=== PATIENT | female | born 1955 | race Caucasian/White ===

== ENCOUNTER 2016-07-04 11:32 | Emergency (ER) | payer MEDICAID ==
[~2016-07-04] VITALS: Ht 152.4 cm; Wt 60.0 kg
[~2016-07-04 11:32] MED LIST: HYDR-3241 PO; LISI5TAB7 PO; TRAZ100T15 PO
[2016-07-04] MEDS ORDERED: ZIPRASIDONE 20 MG INJ IM ONE ×2 (11:36→12:00)
[2016-07-04] MEDS ORDERED: SODIUM CHLORIDE FLUSH 10ML SYR IVF ONE (18:30)
[2016-07-04] MEDS ORDERED: SODIUM CHLORIDE 0.9% 1,000ML IVBOLUS ONE (18:30)
[2016-07-04 21:39] VITALS: BP 160/94
== END 2016-07-04 21:41 | disposition home or self-care (01) ==
LOC: ED 15:57
DX: F10.220 Alcohol dependence with intoxication, uncomplicated (principal); R10.84 Generalized abdominal pain; G89.29 Other chronic pain; F17.200 Nicotine dependence, unspecified, uncomplicated; I10 Essential (primary) hypertension; J44.9 Chronic obstructive pulmonary disease, unspecified; Y90.9 Presence of alcohol in blood, level not specified
CPT/HCPCS: 71010; 96372; 99283; J3486

== ENCOUNTER 2016-08-04 09:40 | Emergency (ER) | payer MEDICAID ==
[~2016-08-04] VITALS: Ht 157.5 cm; Wt 52.0 kg
[~2016-08-04 09:40] MED LIST changes: +OMEP-110 PO
[2016-08-04] MEDS ORDERED: SODIUM CHLORIDE 0.9% 1,000 ML IV ONE (09:50)
[2016-08-04] MEDS ORDERED: FAMOTIDINE 20 MG/2 ML IVP ONE (10:00)
[2016-08-04] MEDS ORDERED: ONDANSETRON 2MG/ML, 2ML IVPush ONE (10:00)
[2016-08-04] MEDS ORDERED: SODIUM CHLORIDE 0.9% 1,000ML IVBOLUS ONE (10:00)
[2016-08-04 10:14] LABS: HEMOGLOBIN 14.7 g/dL (11.7-16.4)
[2016-08-04 10:20] LABS: ASPARTATE AMINO TRANSFERASE 22 U/L (15-37); BLOOD UREA NITROGEN 13 mg/dL (7-18)
[2016-08-04 10:34] LABS: DIFF TOTAL CELLS COUNTED 100 CELL DIFF
[2016-08-04 10:39] LABS: VERIFY COUNTS? YES
[2016-08-04] MEDS ORDERED: FAMOTIDINE 20 MG/2 ML ONE (10:39)
[2016-08-04] MEDS ORDERED: MORPHINE SULFATE 4 MG/ML, 1ML ONE ×2 (10:39→10:56)
[2016-08-04] MEDS ORDERED: ONDANSETRON 2MG/ML, 2ML ONE (10:39)
[2016-08-04 10:40] LABS: POLYCHROMASIA 1+
[2016-08-04] MEDS: MORPHINE SULFATE 4 MG/ML, 1ML IVPush PRN ×2 (10:47→10:59)
[2016-08-04] MEDS ORDERED: LORazepam 2 MG/ML, 1ML IVPush ONE (12:30)
[2016-08-04] MEDS ORDERED: LORazepam 2 MG/ML, 1ML ONE (12:43)
[2016-08-04 14:22] VITALS: BP 157/60
== END 2016-08-04 14:24 | disposition home or self-care (01) ==
LOC: ED 10:42
DX: R10.84 Generalized abdominal pain (principal); F10.239 Alcohol dependence with withdrawal, unspecified; J44.9 Chronic obstructive pulmonary disease, unspecified
CPT/HCPCS: 36415; 76700; 80053; 81003; 83690; 85025; 96361; 96374; 96375; 99285; J2060; J2405; J7030; S0028

== ENCOUNTER 2016-08-18 15:11 | Emergency (ER) | payer MEDICAID ==
[~2016-08-18] VITALS: Ht 162.6 cm; Wt 52.0 kg
[2016-08-18 16:49] LABS: PATH.CAST-FLAG NOT PRESENT; SPERM-FLAG NOT PRESENT; SRC-FLAG NOT PRESENT; XTAL-FLAG NOT PRESENT; YLC-FLAG NOT PRESENT
[2016-08-18 17:23] LABS: BLOOD UREA NITROGEN 17 mg/dL (7-18)
[2016-08-18 17:25] LABS: ASPARTATE AMINO TRANSFERASE 32 U/L (15-37)
[2016-08-18 17:51] VITALS: BP 148/87
== END 2016-08-18 19:25 | disposition home or self-care (01) ==
LOC: ED 19:18
DX: R41.0 Disorientation, unspecified (principal); F10.129 Alcohol abuse with intoxication, unspecified; Y90.9 Presence of alcohol in blood, level not specified
CPT/HCPCS: 36415; 80053; 81001; 82140; 83690; 85025; 87086; 99284

== ENCOUNTER 2016-08-18 23:35 | Emergency (ER) | payer MEDICAID ==
[~2016-08-18] VITALS: Ht 162.6 cm; Wt 50.0 kg
[2016-08-18 23:49] VITALS: BP 128/84
[2016-08-19] MEDS ORDERED: MAALOX/HYOSCYAMINE/LIDOCAINE 45 ML BOTTLE PO ONE
[2016-08-19] MEDS ORDERED: MAALOX/HYOSCYAMINE/LIDOCAINE 45 ML BOTTLE ONE
== END 2016-08-19 01:27 | disposition home or self-care (01) ==
LOC: ED 23:59
DX: F10.20 Alcohol dependence, uncomplicated (principal); Y90.9 Presence of alcohol in blood, level not specified
CPT/HCPCS: 99283

== ENCOUNTER 2016-08-19 22:10 | Emergency (ER) | payer MEDICAID ==
[~2016-08-19] VITALS: Ht 157.5 cm; Wt 55.0 kg
[2016-08-19 23:11] LABS: BLOOD UREA NITROGEN 13 mg/dL (7-18)
[2016-08-20 01:10] VITALS: BP 131/81
== END 2016-08-20 01:13 | disposition home or self-care (01) ==
LOC: ED 08-20 01:03
DX: K62.5 Hemorrhage of anus and rectum (principal); F10.20 Alcohol dependence, uncomplicated; I10 Essential (primary) hypertension; K29.70 Gastritis, unspecified, without bleeding
CPT/HCPCS: 36415; 80048; 85025; 99284

== ENCOUNTER 2016-08-20 13:17 | Emergency (ER) | payer MEDICAID ==
[~2016-08-20] VITALS: Ht 157.5 cm; Wt 55.0 kg
[2016-08-20 14:32] LABS: ASPARTATE AMINO TRANSFERASE 27 U/L (15-37); BLOOD UREA NITROGEN 13 mg/dL (7-18)
[2016-08-20 14:37] LABS: ACETAMINOPHEN < 2 mcg/mL (10-30)
[2016-08-20] MEDS ORDERED: ONDANSETRON ODT 8 MG PO ONE (20:30)
[2016-08-20] MEDS ORDERED: ONDANSETRON ODT 8 MG ONE (20:31)
[2016-08-20] MEDS ORDERED: ACETAMINOPHEN 325 MG TABLET ONE (21:50)
[2016-08-20] MEDS ORDERED: THIAMINE 100MG TABLET ONE (21:51)
[2016-08-20] MEDS ORDERED: ACETAMINOPHEN 325 MG TABLET PO ONE (22:00)
[2016-08-20] MEDS ORDERED: THIAMINE 100MG TABLET PO ONE (22:00)
[2016-08-20 22:10] VITALS: BP 148/81
== END 2016-08-20 22:12 | disposition home or self-care (01) ==
LOC: ED 13:54
DX: F10.120 Alcohol abuse with intoxication, uncomplicated (principal); J44.9 Chronic obstructive pulmonary disease, unspecified; I10 Essential (primary) hypertension; F10.20 Alcohol dependence, uncomplicated
CPT/HCPCS: 36415; 80053; 80307; 80329; 85025; 99284; Q0162; G0480

== ENCOUNTER 2016-08-23 00:57 | Emergency (ER) | payer MEDICAID ==
[~2016-08-23] VITALS: Ht 157.5 cm; Wt 59.1 kg
[2016-08-23 06:18] VITALS: BP 123/72
== END 2016-08-23 06:26 | disposition home or self-care (01) ==
LOC: ED 02:24
DX: F32.0 Major depressive disorder, single episode, mild (principal); F10.120 Alcohol abuse with intoxication, uncomplicated
CPT/HCPCS: 99284

== ENCOUNTER 2016-08-28 21:29 | Emergency (ER) | payer MEDICAID ==
[~2016-08-28] VITALS: Ht 167.6 cm; Wt 46.5 kg
[2016-08-28 21:55] VITALS: BP 112/56
[2016-08-28] MEDS ORDERED: FAMOTIDINE 20 MG/2 ML IVP ONE (22:00)
[2016-08-28] MEDS ORDERED: PLEASE ENTER HEIGHT AND WEIGHT MC SCH (22:00)
[2016-08-28] MEDS ORDERED: SODIUM CHLORIDE 0.9% 1,000ML IVBOLUS ONE (22:00)
[2016-08-28] MEDS ORDERED: ONDANSETRON 2MG/ML, 2ML IVPush ONE (22:00)
== END 2016-08-28 22:59 | disposition home or self-care (01) ==
LOC: ED 22:13
DX: R10.9 Unspecified abdominal pain (principal); R19.7 Diarrhea, unspecified
CPT/HCPCS: 99283

== ENCOUNTER 2016-08-29 09:05 | Emergency (ER) | payer MEDICAID ==
[~2016-08-29] VITALS: Ht 160 cm; Wt 50.0 kg
[2016-08-29] MEDS ORDERED: SODIUM CHLORIDE 0.9% 1,000 ML IV ONE (09:23)
[2016-08-29] MEDS ORDERED: FAMOTIDINE 20 MG/2 ML IVP ONE (09:30)
[2016-08-29] MEDS ORDERED: ONDANSETRON 2MG/ML, 2ML IVPush ONE (09:30)
[2016-08-29] MEDS ORDERED: MAALOX/HYOSCYAMINE/LIDOCAINE 45 ML BOTTLE PO ONE (09:30)
[2016-08-29] MEDS ORDERED: SODIUM CHLORIDE 0.9% 1,000ML IVBOLUS ONE (09:30)
[2016-08-29 09:52] LABS: BLOOD UREA NITROGEN 17 mg/dL (7-18)
[2016-08-29] MEDS ORDERED: PLEASE ENTER HEIGHT AND WEIGHT MC SCH (10:00)
[2016-08-29] MEDS ORDERED: MAALOX/HYOSCYAMINE/LIDOCAINE 45 ML BOTTLE ONE (10:24)
[2016-08-29] MEDS ORDERED: FAMOTIDINE 20 MG/2 ML ONE (10:24)
[2016-08-29] MEDS ORDERED: ONDANSETRON 2MG/ML, 2ML ONE (10:24)
[2016-08-29 11:06] VITALS: BP 130/79
[2016-08-29 11:06] LABS: ASPARTATE AMINO TRANSFERASE 21 U/L (15-37)
== END 2016-08-29 12:31 | disposition left against medical advice (07) ==
LOC: ED 09:15
DX: K52.9 Noninfective gastroenteritis and colitis, unspecified (principal); J44.9 Chronic obstructive pulmonary disease, unspecified; I10 Essential (primary) hypertension; F17.200 Nicotine dependence, unspecified, uncomplicated
CPT/HCPCS: 36415; 80053; 80307; 83690; 85025; 96361; 96374; 96375; 99284; J2405; J7030; S0028

== ENCOUNTER 2016-08-31 21:47 | Emergency (ER) | payer MEDICAID ==
[~2016-08-31] VITALS: Ht 157.5 cm; Wt 56.8 kg
[2016-08-31 21:50] VITALS: BP 155/94
== END 2016-08-31 22:49 | disposition left against medical advice (07) ==
LOC: ED 22:00
DX: F10.10 Alcohol abuse, uncomplicated (principal)

== ENCOUNTER 2016-11-24 12:09 | Emergency (ER) | payer MEDICAID ==
[~2016-11-24] VITALS: Ht 160 cm; Wt 55.0 kg
[2016-11-24] MEDS ORDERED: SODIUM CHLORIDE FLUSH 10ML SYR IVF ONE (13:00)
[2016-11-24] MEDS ORDERED: ONDANSETRON 2MG/ML, 2ML IVPush ONE (13:00)
[2016-11-24] MEDS ORDERED: SODIUM CHLORIDE 0.9% 1,000ML IVBOLUS ONE (13:00)
[2016-11-24] MEDS ORDERED: MORPHINE SULFATE 4 MG/ML, 1ML ONE ×2 (13:05→14:20)
[2016-11-24] MEDS ORDERED: ONDANSETRON 2MG/ML, 2ML ONE (13:05)
[2016-11-24] MEDS: MORPHINE SULFATE 4 MG/ML, 1ML IVPush PRN ×2 (13:20→14:21)
[2016-11-24 14:45] VITALS: BP 131/80
== END 2016-11-24 15:35 | disposition left against medical advice (07) ==
LOC: ED 14:41
DX: S60.811A Abrasion of right wrist, initial encounter (principal); G89.11 Acute pain due to trauma; F17.200 Nicotine dependence, unspecified, uncomplicated; I10 Essential (primary) hypertension; J44.9 Chronic obstructive pulmonary disease, unspecified; W19.XXXA Unspecified fall, initial encounter; Y93.89 Activity, other specified; Y92.89 Other specified places as the place of occurrence of the external cause; Y99.8 Other external cause status
CPT/HCPCS: 73110; 93005; 96361; 96374; 96375; 96376; 99285; J2405; J7030

== ENCOUNTER 2016-12-07 22:56 | Emergency (ER) | payer MEDICAID | END 2016-12-07 23:40 | disposition home or self-care (01) | LOC: ED 23:34 | DX: M79.631 Pain in right forearm (principal); R10.84 Generalized abdominal pain; F10.20 Alcohol dependence, uncomplicated; J44.9 Chronic obstructive pulmonary disease, unspecified; F19.10 Other psychoactive substance abuse, uncomplicated; W19.XXXA Unspecified fall, initial encounter; Y93.89 Activity, other specified; Y99.8 Other external cause status; Y92.89 Other specified places as the place of occurrence of the external cause | CPT/HCPCS: 99283 ==

== ENCOUNTER 2016-12-11 02:06 | Emergency (ER) | payer MEDICAID ==
[~2016-12-11] VITALS: Ht 154.9 cm; Wt 45.0 kg
[2016-12-11] MEDS ORDERED: THIAMINE 100MG TABLET ONE (02:26)
[2016-12-11] MEDS ORDERED: PROMETHAZINE 25 MG/ML, 1ML ONE (02:26)
[2016-12-11] MEDS ORDERED: LORazepam 1MG TABLET ONE (02:26)
[2016-12-11] MEDS ORDERED: PROMETHAZINE 25 MG/ML, 1ML IM ONE (02:30)
[2016-12-11] MEDS ORDERED: THIAMINE 100MG TABLET PO ONE (02:30)
[2016-12-11] MEDS ORDERED: LORazepam 1MG TABLET PO ONE (02:30)
[2016-12-11 02:35] LABS: HEMATOCRIT 40.3 % (34.6-47.8); HEMOGLOBIN 13.3 g/dL (11.7-16.4); WHITE BLOOD COUNT 7.2 x10^3/uL (3.4-10)
[2016-12-11 02:44] LABS: BLOOD UREA NITROGEN 13 mg/dL (7-18)
[2016-12-11 03:59] VITALS: BP 130/78
== END 2016-12-11 04:02 | disposition home or self-care (01) ==
LOC: ED 03:30
DX: F10.220 Alcohol dependence with intoxication, uncomplicated (principal); I10 Essential (primary) hypertension; J44.9 Chronic obstructive pulmonary disease, unspecified
CPT/HCPCS: 36415; 80048; 80307; 82040; 85025; 93005; 96372; 99285; J2550

== ENCOUNTER 2016-12-20 07:40 | Emergency (ER) | payer MEDICAID ==
[~2016-12-20] VITALS: Ht 157.5 cm; Wt 68.0 kg
[2016-12-20 08:18] VITALS: BP 118/61
== END 2016-12-20 13:30 | disposition home or self-care (01) ==
LOC: ED 07:51
DX: F10.220 Alcohol dependence with intoxication, uncomplicated (principal); M25.531 Pain in right wrist; I10 Essential (primary) hypertension; J44.9 Chronic obstructive pulmonary disease, unspecified
CPT/HCPCS: 99283

== ENCOUNTER 2016-12-29 16:22 | Emergency (ER) | payer MEDICAID ==
[~2016-12-29] VITALS: Ht 157.5 cm; Wt 59.6 kg
[2016-12-29 17:20] LABS: HEMATOCRIT 38.5 % (34.6-47.8); WHITE BLOOD COUNT 4.5 x10^3/uL (3.4-10)
[2016-12-29 17:30] LABS: BLOOD UREA NITROGEN 15 mg/dL (7-18)
[2016-12-29] MEDS ORDERED: POTASSIUM CHLORIDE 20 MEQ TAB.ER.PRT PO ONE (19:30)
[2016-12-29] MEDS ORDERED: POTASSIUM CHLORIDE 20 MEQ TAB.ER.PRT ONE (19:32)
[2016-12-29] MEDS ORDERED: ONDANSETRON ODT 4 MG ONE (19:35)
[2016-12-29] MEDS ORDERED: ONDANSETRON ODT 4 MG PO ONE (20:00)
[2016-12-29 20:24] VITALS: BP 114/62
[2016-12-29 20:43] LABS: ASPARTATE AMINO TRANSFERASE 34 U/L (15-37)
== END 2016-12-29 22:36 | disposition home or self-care (01) ==
LOC: ED 20:39
DX: M54.5 Low back pain (principal); E87.6 Hypokalemia; G89.29 Other chronic pain; M54.2 Cervicalgia; J44.9 Chronic obstructive pulmonary disease, unspecified; I10 Essential (primary) hypertension; F10.20 Alcohol dependence, uncomplicated; F32.9 Major depressive disorder, single episode, unspecified
CPT/HCPCS: 36415; 72110; 80053; 81001; 83690; 84439; 84443; 85025; 87086; 93005; 99285; Q0162

== ENCOUNTER 2017-01-30 18:50 | Emergency (ER) | payer MEDICAID ==
[~2017-01-30] VITALS: Ht 160 cm; Wt 55.0 kg
[2017-01-30 19:00] VITALS: BP 138/87
[2017-01-30] MEDS ORDERED: ONDANSETRON ODT 4 MG PO ONE (19:30)
[2017-01-30] MEDS ORDERED: MAALOX/HYOSCYAMINE/LIDOCAINE 45 ML BTL PO ONE (19:30)
== END 2017-01-30 20:06 | disposition left against medical advice (07) ==
LOC: ED 19:35
DX: R10.13 Epigastric pain (principal); F32.9 Major depressive disorder, single episode, unspecified; J44.9 Chronic obstructive pulmonary disease, unspecified
CPT/HCPCS: 99283

== ENCOUNTER 2017-01-31 02:04 | Observation (INO) | payer MEDICAID ==
[~2017-01-31] VITALS: Ht 162.6 cm; Wt 55.0 kg
[2017-01-31 02:54] LABS: HEMATOCRIT 47.1 % (34.6-47.8); HEMOGLOBIN 16.1 g/dL (11.7-16.4)
[2017-01-31 03:01] LABS: BLOOD UREA NITROGEN 16 mg/dL (7-18)
[2017-01-31 03:02] LABS: ACETAMINOPHEN < 2 mcg/mL (10-30)
[2017-01-31 03:13] LABS: DIFF TOTAL CELLS COUNTED 100 CELL DIFF
[2017-01-31 03:16] LABS: VERIFY COUNTS? YES
[2017-01-31] MEDS ORDERED: ONDANSETRON ODT 4 MG ONE ×2 (08:42→19:14)
[2017-01-31] MEDS ORDERED: ONDANSETRON ODT 4 MG PO ONE (09:00)
[2017-01-31] MEDS ORDERED: LORazepam 2 MG/ML, 1ML IVPush PRN (11:30)
[2017-01-31] MEDS ORDERED: PROMETHAZINE 25 MG/ML, 1ML ONE (11:40)
[2017-01-31] MEDS ORDERED: LORazepam 1MG TABLET ONE ×2 (11:41→19:14)
[2017-01-31] MEDS ORDERED: PROMETHAZINE 25 MG/ML, 1ML IM ONE (12:00)
[2017-01-31] MEDS ORDERED: LORazepam 1MG TABLET PO ONE (12:00)
[2017-01-31] MEDS ORDERED: NICOTINE 14MG/24 HR PATCH.TD24 TD SCH (18:30)
[2017-01-31] MEDS ORDERED: LISINOPRIL 5 MG TABLET PO ONE (18:30)
[2017-01-31] MEDS: ONDANSETRON ODT 4 MG PO PRN (19:15)
[2017-01-31 19:23] LABS: DAU SCREEN DISCLAIMER
[2017-01-31] MEDS ORDERED: TRAZODONE 100MG TABLET PO SCH (21:00)
[2017-02-01] MEDS ORDERED: NICOTINE 14MG/24 HR PATCH.TD24 ONE (03:58)
[2017-02-01] MEDS ORDERED: ONDANSETRON ODT 4 MG ONE ×2 (03:58→18:38)
[2017-02-01] MEDS ORDERED: LORazepam 1MG TABLET ONE ×3 (03:59→18:38)
[2017-02-01] MEDS: ONDANSETRON ODT 4 MG PO PRN ×2 (04:05→18:42)
[2017-02-01] MEDS: OMEPRAZOLE 20 MG CAPSULE.DR PO SCH ×3 (04:13→09:17)
[2017-02-01 05:30] LABS: BLOOD UREA NITROGEN 20 mg/dL (7-18)
[2017-02-01 05:50] LABS: HEMATOCRIT 40.7 % (34.6-47.8); HEMOGLOBIN 14.2 g/dL (11.7-16.4); WHITE BLOOD COUNT 8.3 x10^3/uL (3.4-10)
[2017-02-01] MEDS ORDERED: ENOXAPARIN 40 MG/0.4 ML ONE (16:36)
[2017-02-01 17:37] VITALS: BP 119/75
== END 2017-02-01 22:58 | disposition home or self-care (01) ==
LOC: ED 02:10 → EDIP 17:14
PROVIDERS: ADMIT Emergency Medicine; ATTEND Emergency Medicine
DX: R45.851 Suicidal ideations (principal); F10.229 Alcohol dependence with intoxication, unspecified; F33.2 Major depressive disorder, recurrent severe without psychotic features; F17.210 Nicotine dependence, cigarettes, uncomplicated; E87.6 Hypokalemia; F41.1 Generalized anxiety disorder; G89.29 Other chronic pain; I10 Essential (primary) hypertension; J44.9 Chronic obstructive pulmonary disease, unspecified
CPT/HCPCS: 36415; 80048; 80307; 80329; 82040; 85025; 96372; 99285; G0378; J2550; Q0162; G0479; G0480

== ENCOUNTER 2017-03-03 00:48 | Emergency (ER) | payer MEDICAID ==
[~2017-03-03] VITALS: Ht 160 cm; Wt 62.0 kg
[2017-03-03 00:56] VITALS: BP 148/75
== END 2017-03-03 03:26 | disposition home or self-care (01) ==
LOC: ED 01:35
DX: F10.220 Alcohol dependence with intoxication, uncomplicated (principal); J44.9 Chronic obstructive pulmonary disease, unspecified; F32.9 Major depressive disorder, single episode, unspecified; F41.9 Anxiety disorder, unspecified; I10 Essential (primary) hypertension
CPT/HCPCS: 99283

== ENCOUNTER 2017-09-19 05:36 | Inpatient (IN) | payer MEDICAID ==
[~2017-09-19] VITALS: Ht 165.1 cm; Wt 63.8 kg
[2017-09-19] MEDS ORDERED: PROMETHAZINE 25 MG/ML, 1ML IM ONE (06:00)
[2017-09-19] MEDS ORDERED: LORazepam 2 MG/ML, 1ML IVPush PRN (06:00)
[2017-09-19] MEDS ORDERED: SODIUM CHLORIDE 0.9% 1,000ML IVBOLUS ONE (06:00)
[2017-09-19] MEDS ORDERED: MAGNESIUM SULFATE 1 GM, THIAMINE 100 MG, FOLIC ACID 1 MG, MVI ADULT 10 ML in SODIUM CHL... IV ONE (06:00)
[2017-09-19] MEDS ORDERED: SODIUM CHLORIDE FLUSH 10ML SYR IVF ONE (06:00)
[2017-09-19] MEDS ORDERED: PROMETHAZINE 25 MG/ML, 1ML ONE (06:01)
[2017-09-19] MEDS ORDERED: LORazepam 2 MG/ML, 1ML ONE (06:02)
[2017-09-19 06:17] LABS: BASOPHILS # (AUTO) 0.05 x10^3/uL (0-0.1); BASOPHILS % (AUTO) 1 % (0-1); EOSINOPHILS # (AUTO) 0.01 x10^3/uL (0-0.4); EOSINOPHILS % (AUTO) 0 % (1-7); LYMPHOCYTES # (AUTO) 2.56 x10^3/uL (1-3.4); LYMPHOCYTES % (AUTO) 30 % (22-44); MD NO; MEAN CORPUSCULAR HEMOGLOBIN 32.4 pg (27.0-34.8); MEAN CORPUSCULAR HGB CONC 34.6 g/dL (32.4-35.8); MEAN CORPUSCULAR VOLUME 93.7 fL (80-100); MEAN PLATELET VOLUME 7.4 fL (7.4-10.4); MONOCYTES # (AUTO) 0.54 x10^3/uL (0.2-0.8); MONOCYTES % (AUTO) 6 % (2-9); NEUTROPHILS # (AUTO) 5.35 x10^3/uL (1.8-6.8); NEUTROPHILS % (AUTO) 63 % (42-75); PLATELET COUNT 256 x10^3/uL (130-400); RED BLOOD COUNT 5.01 x10^6/uL (3.82-5.3)
[2017-09-19 06:29] LABS: ALANINE AMINOTRANSFERASE 24 U/L (12-78); ALBUMIN 4.2 g/dL (3.4-5.0); ANION GAP 16 mmol/L (5-15); CALCIUM 8.9 mg/dL (8.5-10.1); CHLORIDE 96 mmol/L (98-107); CREATININE 0.71 mg/dL (0.55-1.02)
[2017-09-19 06:31] LABS: ALKALINE PHOSPHATASE 88 U/L (45-117); BILIRUBIN,TOTAL 0.6 mg/dL (0.2-1.0); TOTAL PROTEIN 7.8 g/dL (6.4-8.2)
[2017-09-19 06:43] LABS: ACETONE, SERUM Trace (10mg/dL) mg/dL (Negative)
[2017-09-19] MEDS ORDERED: POTASSIUM CHLORIDE 20 MEQ TAB.ER.PRT PO ONE ×2 (07:00→10:00)
[2017-09-19] MEDS ORDERED: POTASSIUM CHLORIDE 20 MEQ TAB.ER.PRT ONE (07:53)
[2017-09-19] MEDS ORDERED: LABETALOL 5MG/ML, 20ML IV PRN (09:30)
[2017-09-19] MEDS ORDERED: DOCUSATE 100 MG CAPSULE PO PRN (09:30)
[2017-09-19] MEDS ORDERED: LORazepam 2 MG/ML, 1ML IV PRN ×4 (09:30)
[2017-09-19] MEDS: LISINOPRIL 5 MG TABLET PO SCH (10:37)
[2017-09-19] MEDS: THIAMINE 100MG TABLET PO SCH ×2 (10:37→20:30)
[2017-09-19] MEDS: OMEPRAZOLE 20 MG CAPSULE.DR PO SCH (10:37)
[2017-09-19] MEDS: MULTIVITAMINS/MINERALS TABLET PO SCH (10:37)
[2017-09-19] MEDS: ENOXAPARIN 40 MG/0.4 ML SQ SCH (10:38)
[2017-09-19] MEDS: LORazepam 2 MG/ML, 1ML IV PRN ×2 (10:53→20:41)
[2017-09-19 13:24] VITALS: BP 129/61
[2017-09-19] MEDS: SODIUM CHLORIDE 0.9% 1,000 ML IV SCH ×2 (14:27→22:41)
[2017-09-19] MEDS: NICOTINE 14MG/24 HR PATCH.TD24 TD SCH (15:03)
[2017-09-19] MEDS ORDERED: ALBUTEROL SULFATE 2.5 MG/3 ML NPPB PRN (15:30)
[2017-09-19] MEDS: POTASSIUM CHLORIDE 20 MEQ, MVI ADULT 10 ML, FOLIC ACID 1 MG, MAGNESIUM SULFATE 1 GM in ... IV SCH ×2 (15:30→23:41)
[2017-09-19 16:00] VITALS: BP 126/73
[2017-09-19 19:52] VITALS: BP 112/65
[2017-09-19] MEDS ORDERED: LORazepam 1MG TABLET PO PRN (23:30)
[2017-09-20 01:26] VITALS: BP 137/76
[2017-09-20] MEDS: LORazepam 0.5MG TABLET PO PRN ×2 (02:05→06:26)
[2017-09-20 05:29] LABS: CHLORIDE 106 mmol/L (98-107)
[2017-09-20 05:36] LABS: BASOPHILS # (AUTO) 0.05 x10^3/uL (0-0.1); BASOPHILS % (AUTO) 1 % (0-1); EOSINOPHILS % (AUTO) 2 % (1-7); LYMPHOCYTES % (AUTO) 33 % (22-44); MD NO; MEAN CORPUSCULAR HEMOGLOBIN 31.7 pg (27.0-34.8); MEAN CORPUSCULAR HGB CONC 33.6 g/dL (32.4-35.8); MEAN CORPUSCULAR VOLUME 94.2 fL (80-100); MEAN PLATELET VOLUME 7.7 fL (7.4-10.4); MONOCYTES # (AUTO) 0.53 x10^3/uL (0.2-0.8); MONOCYTES % (AUTO) 10 % (2-9); NEUTROPHILS # (AUTO) 2.72 x10^3/uL (1.8-6.8); NEUTROPHILS % (AUTO) 53 % (42-75); PLATELET COUNT 152 x10^3/uL (130-400); RED BLOOD COUNT 3.84 x10^6/uL (3.82-5.3); RED CELL DISTRIBUTION WIDTH 14.1 % (9.6-15.2)
[2017-09-20] MEDS: SODIUM CHLORIDE 0.9% 1,000 ML IV SCH ×2 (06:00→16:12)
[2017-09-20 06:27] LABS: ALANINE AMINOTRANSFERASE 17 U/L (12-78); ALKALINE PHOSPHATASE 59 U/L (45-117); ANION GAP 6 mmol/L (5-15); BILIRUBIN,TOTAL 1.3 mg/dL (0.2-1.0); CALCIUM 8.3 mg/dL (8.5-10.1); CREATININE 0.67 mg/dL (0.55-1.02); TOTAL PROTEIN 5.8 g/dL (6.4-8.2)
[2017-09-20] MEDS: POTASSIUM CHLORIDE 20 MEQ, MVI ADULT 10 ML, FOLIC ACID 1 MG, MAGNESIUM SULFATE 1 GM in ... IV SCH ×3 (06:27→18:30)
[2017-09-20 07:34] VITALS: BP 127/81
[2017-09-20] MEDS: ENOXAPARIN 40 MG/0.4 ML SQ SCH (07:41)
[2017-09-20] MEDS: THIAMINE 100MG TABLET PO SCH ×2 (07:41→21:01)
[2017-09-20] MEDS: MULTIVITAMINS/MINERALS TABLET PO SCH (07:41)
[2017-09-20] MEDS: OMEPRAZOLE 20 MG CAPSULE.DR PO SCH (07:41)
[2017-09-20] MEDS: LISINOPRIL 5 MG TABLET PO SCH (07:41)
[2017-09-20] MEDS: LORazepam 1MG TABLET PO PRN ×3 (10:38→21:01)
[2017-09-20 13:09] VITALS: BP 115/68
[2017-09-20] MEDS: HYDROcodone/APAP 5/325 TABLET PO PRN ×2 (14:40→21:01)
[2017-09-20] MEDS: NICOTINE 14MG/24 HR PATCH.TD24 TD SCH (14:41)
[2017-09-20 20:11] VITALS: BP 113/72
[2017-09-21 01:14] VITALS: BP 136/80
[2017-09-21] MEDS: SODIUM CHLORIDE 0.9% 1,000 ML IV SCH ×2 (01:37→16:48)
[2017-09-21] MEDS: LORazepam 0.5MG TABLET PO PRN ×5 (01:37→21:14)
[2017-09-21] MEDS: HYDROcodone/APAP 5/325 TABLET PO PRN ×4 (03:40→23:16)
[2017-09-21 05:13] LABS: ALBUMIN 2.9 g/dL (3.4-5.0); ANION GAP 5 mmol/L (5-15); CALCIUM 8.5 mg/dL (8.5-10.1); CHLORIDE 107 mmol/L (98-107); CREATININE 0.62 mg/dL (0.55-1.02)
[2017-09-21 05:22] LABS: MEAN CORPUSCULAR HEMOGLOBIN 31.9 pg (27.0-34.8); MEAN CORPUSCULAR HGB CONC 33.6 g/dL (32.4-35.8); MEAN CORPUSCULAR VOLUME 95.2 fL (80-100); MEAN PLATELET VOLUME 7.6 fL (7.4-10.4); PLATELET COUNT 142 x10^3/uL (130-400); RED BLOOD COUNT 3.82 x10^6/uL (3.82-5.3); RED CELL DISTRIBUTION WIDTH 14.2 % (9.6-15.2)
[2017-09-21] MEDS: POTASSIUM CHLORIDE 20 MEQ, MVI ADULT 10 ML, FOLIC ACID 1 MG, MAGNESIUM SULFATE 1 GM in ... IV SCH (06:15)
[2017-09-21 06:17] LABS: BASOPHILS # (AUTO) 0.03 x10^3/uL (0-0.1); BASOPHILS % (AUTO) 1 % (0-1); EOSINOPHILS # (AUTO) 0.12 x10^3/uL (0-0.4); EOSINOPHILS % (AUTO) 3 % (1-7); LYMPHOCYTES # (AUTO) 1.77 x10^3/uL (1-3.4); LYMPHOCYTES % (AUTO) 47 % (22-44); MD SCAN; MONOCYTES # (AUTO) 0.38 x10^3/uL (0.2-0.8); MONOCYTES % (AUTO) 10 % (2-9); NEUTROPHILS # (AUTO) 1.45 x10^3/uL (1.8-6.8); NEUTROPHILS % (AUTO) 39 % (42-75)
[2017-09-21 07:44] VITALS: BP 139/83
[2017-09-21] MEDS: OMEPRAZOLE 20 MG CAPSULE.DR PO SCH (08:41)
[2017-09-21] MEDS: MULTIVITAMINS/MINERALS TABLET PO SCH (08:41)
[2017-09-21] MEDS: LISINOPRIL 5 MG TABLET PO SCH (08:41)
[2017-09-21] MEDS: ENOXAPARIN 40 MG/0.4 ML SQ SCH (10:54)
[2017-09-21] MEDS: THIAMINE 100MG TABLET PO SCH ×2 (10:54→21:14)
[2017-09-21 12:40] VITALS: BP 116/69
[2017-09-21] MEDS: NICOTINE 14MG/24 HR PATCH.TD24 TD SCH (15:11)
[2017-09-21 19:45] VITALS: BP 138/79
[2017-09-22 02:34] VITALS: BP 130/80
[2017-09-22] MEDS: LORazepam 0.5MG TABLET PO PRN ×3 (03:29→20:09)
[2017-09-22] MEDS: HYDROcodone/APAP 5/325 TABLET PO PRN ×3 (03:29→20:09)
[2017-09-22] MEDS: SODIUM CHLORIDE 0.9% 1,000 ML IV SCH ×3 (04:27→21:41)
[2017-09-22] MEDS: POTASSIUM CHLORIDE 20 MEQ, MVI ADULT 10 ML, FOLIC ACID 1 MG, MAGNESIUM SULFATE 1 GM in ... IV SCH (06:40)
[2017-09-22] MEDS: ENOXAPARIN 40 MG/0.4 ML SQ SCH (08:01)
[2017-09-22] MEDS: LISINOPRIL 5 MG TABLET PO SCH (08:01)
[2017-09-22] MEDS: MULTIVITAMINS/MINERALS TABLET PO SCH (08:01)
[2017-09-22] MEDS: OMEPRAZOLE 20 MG CAPSULE.DR PO SCH (08:01)
[2017-09-22] MEDS: LORazepam 1MG TABLET PO PRN (08:01)
[2017-09-22] MEDS: ONDANSETRON 2MG/ML, 2ML IV PRN (08:01)
[2017-09-22] MEDS: THIAMINE 100MG TABLET PO SCH ×2 (08:02→20:09)
[2017-09-22 08:04] VITALS: BP 126/70
[2017-09-22] MEDS: NICOTINE 14MG/24 HR PATCH.TD24 TD SCH (13:42)
[2017-09-22 14:20] VITALS: BP 101/61
[2017-09-22 18:46] VITALS: BP 115/66
[2017-09-23 01:41] VITALS: BP 123/72
[2017-09-23] MEDS: HYDROcodone/APAP 5/325 TABLET PO PRN ×4 (02:59→22:12)
[2017-09-23] MEDS: LORazepam 0.5MG TABLET PO PRN ×4 (02:59→22:12)
[2017-09-23] MEDS: SODIUM CHLORIDE 0.9% 1,000 ML IV SCH ×3 (05:58→23:48)
[2017-09-23 06:04] LABS: BASOPHILS # (AUTO) 0.02 x10^3/uL (0-0.1); BASOPHILS % (AUTO) 0 % (0-1); EOSINOPHILS # (AUTO) 0.09 x10^3/uL (0-0.4); EOSINOPHILS % (AUTO) 2 % (1-7); LYMPHOCYTES # (AUTO) 1.55 x10^3/uL (1-3.4); LYMPHOCYTES % (AUTO) 33 % (22-44); MD NO; MEAN CORPUSCULAR HEMOGLOBIN 32.6 pg (27.0-34.8); MEAN CORPUSCULAR HGB CONC 34.2 g/dL (32.4-35.8); MEAN CORPUSCULAR VOLUME 95.2 fL (80-100); MEAN PLATELET VOLUME 8.8 fL (7.4-10.4); MONOCYTES # (AUTO) 0.41 x10^3/uL (0.2-0.8); MONOCYTES % (AUTO) 9 % (2-9); NEUTROPHILS # (AUTO) 2.58 x10^3/uL (1.8-6.8); NEUTROPHILS % (AUTO) 55 % (42-75); PLATELET COUNT 134 x10^3/uL (130-400); RED BLOOD COUNT 3.75 x10^6/uL (3.82-5.3); RED CELL DISTRIBUTION WIDTH 14.2 % (9.6-15.2)
[2017-09-23] MEDS: POTASSIUM CHLORIDE 20 MEQ, MVI ADULT 10 ML, FOLIC ACID 1 MG, MAGNESIUM SULFATE 1 GM in ... IV SCH (06:34)
[2017-09-23 07:33] LABS: ALBUMIN 3.2 g/dL (3.4-5.0); ANION GAP 4 mmol/L (5-15); CALCIUM 8.9 mg/dL (8.5-10.1); CHLORIDE 106 mmol/L (98-107)
[2017-09-23] MEDS: OMEPRAZOLE 20 MG CAPSULE.DR PO SCH (08:17)
[2017-09-23] MEDS: THIAMINE 100MG TABLET PO SCH ×2 (08:17→22:12)
[2017-09-23] MEDS: MULTIVITAMINS/MINERALS TABLET PO SCH (08:17)
[2017-09-23] MEDS: ENOXAPARIN 40 MG/0.4 ML SQ SCH (08:18)
[2017-09-23] MEDS: LISINOPRIL 5 MG TABLET PO SCH (08:18)
[2017-09-23 08:53] VITALS: BP 130/78
[2017-09-23 14:05] VITALS: BP 136/71
[2017-09-23] MEDS: NICOTINE 14MG/24 HR PATCH.TD24 TD SCH (15:30)
[2017-09-23 18:15] VITALS: BP 127/73
[2017-09-23] MEDS: ONDANSETRON 2MG/ML, 2ML IV PRN (22:18)
[2017-09-24 00:20] VITALS: BP 125/74
[2017-09-24] MEDS: HYDROcodone/APAP 5/325 TABLET PO PRN ×4 (04:38→23:21)
[2017-09-24] MEDS: LORazepam 0.5MG TABLET PO PRN ×4 (04:38→23:21)
[2017-09-24] MEDS: POTASSIUM CHLORIDE 20 MEQ, MVI ADULT 10 ML, FOLIC ACID 1 MG, MAGNESIUM SULFATE 1 GM in ... IV SCH (06:09)
[2017-09-24 08:00] VITALS: BP 136/74
[2017-09-24 08:10] LABS: BASOPHILS # (AUTO) 0.02 x10^3/uL (0-0.1); BASOPHILS % (AUTO) 0 % (0-1); EOSINOPHILS # (AUTO) 0.14 x10^3/uL (0-0.4); EOSINOPHILS % (AUTO) 3 % (1-7); LYMPHOCYTES # (AUTO) 1.65 x10^3/uL (1-3.4); LYMPHOCYTES % (AUTO) 33 % (22-44); MD NO; MEAN CORPUSCULAR HEMOGLOBIN 31.5 pg (27.0-34.8); MEAN CORPUSCULAR HGB CONC 33.4 g/dL (32.4-35.8); MEAN CORPUSCULAR VOLUME 94.3 fL (80-100); MEAN PLATELET VOLUME 8.3 fL (7.4-10.4); MONOCYTES # (AUTO) 0.39 x10^3/uL (0.2-0.8); MONOCYTES % (AUTO) 8 % (2-9); NEUTROPHILS # (AUTO) 2.83 x10^3/uL (1.8-6.8); NEUTROPHILS % (AUTO) 56 % (42-75); PLATELET COUNT 144 x10^3/uL (130-400); RED BLOOD COUNT 4.06 x10^6/uL (3.82-5.3); RED CELL DISTRIBUTION WIDTH 14.8 % (9.6-15.2)
[2017-09-24 08:21] LABS: ALANINE AMINOTRANSFERASE 51 U/L (12-78); ALBUMIN 3.3 g/dL (3.4-5.0); ANION GAP 4 mmol/L (5-15); CALCIUM 8.6 mg/dL (8.5-10.1); CHLORIDE 109 mmol/L (98-107); CREATININE 0.62 mg/dL (0.55-1.02)
[2017-09-24 08:24] LABS: ALKALINE PHOSPHATASE 61 U/L (45-117); BILIRUBIN,TOTAL 0.2 mg/dL (0.2-1.0); TOTAL PROTEIN 6.5 g/dL (6.4-8.2)
[2017-09-24] MEDS: MULTIVITAMINS/MINERALS TABLET PO SCH (08:44)
[2017-09-24] MEDS: ENOXAPARIN 40 MG/0.4 ML SQ SCH (08:44)
[2017-09-24] MEDS: OMEPRAZOLE 20 MG CAPSULE.DR PO SCH (08:44)
[2017-09-24] MEDS: LISINOPRIL 5 MG TABLET PO SCH (08:44)
[2017-09-24] MEDS: THIAMINE 100MG TABLET PO SCH ×2 (08:44→23:21)
[2017-09-24 14:00] VITALS: BP 138/79
[2017-09-24] MEDS: SODIUM CHLORIDE 0.9% 1,000 ML IV SCH ×2 (14:26→21:44)
[2017-09-24] MEDS: NICOTINE 14MG/24 HR PATCH.TD24 TD SCH (14:29)
[2017-09-24 19:20] VITALS: BP 134/74
[2017-09-25 00:28] VITALS: BP 147/78
[2017-09-25 05:32] LABS: BASOPHILS # (AUTO) 0.02 x10^3/uL (0-0.1); BASOPHILS % (AUTO) 0 % (0-1); EOSINOPHILS # (AUTO) 0.16 x10^3/uL (0-0.4); EOSINOPHILS % (AUTO) 3 % (1-7); LYMPHOCYTES # (AUTO) 1.97 x10^3/uL (1-3.4); LYMPHOCYTES % (AUTO) 36 % (22-44); MD NO; MEAN CORPUSCULAR HEMOGLOBIN 31.9 pg (27.0-34.8); MEAN CORPUSCULAR HGB CONC 33.8 g/dL (32.4-35.8); MEAN CORPUSCULAR VOLUME 94.3 fL (80-100); MEAN PLATELET VOLUME 8.3 fL (7.4-10.4); MONOCYTES # (AUTO) 0.49 x10^3/uL (0.2-0.8); MONOCYTES % (AUTO) 9 % (2-9); NEUTROPHILS # (AUTO) 2.85 x10^3/uL (1.8-6.8); NEUTROPHILS % (AUTO) 52 % (42-75); PLATELET COUNT 143 x10^3/uL (130-400); RED BLOOD COUNT 4.04 x10^6/uL (3.82-5.3); RED CELL DISTRIBUTION WIDTH 14.6 % (9.6-15.2)
[2017-09-25 05:46] LABS: ANION GAP 6 mmol/L (5-15); CALCIUM 8.8 mg/dL (8.5-10.1); CHLORIDE 107 mmol/L (98-107)
[2017-09-25 05:47] LABS: ALANINE AMINOTRANSFERASE 56 U/L (12-78); ALBUMIN 3.5 g/dL (3.4-5.0)
[2017-09-25] MEDS: POTASSIUM CHLORIDE 20 MEQ, MVI ADULT 10 ML, FOLIC ACID 1 MG, MAGNESIUM SULFATE 1 GM in ... IV SCH (05:47)
[2017-09-25] MEDS: LORazepam 0.5MG TABLET PO PRN ×2 (05:47→08:46)
[2017-09-25] MEDS: HYDROcodone/APAP 5/325 TABLET PO PRN (05:47)
[2017-09-25 05:48] LABS: ALKALINE PHOSPHATASE 58 U/L (45-117); BILIRUBIN,TOTAL 0.2 mg/dL (0.2-1.0); TOTAL PROTEIN 6.7 g/dL (6.4-8.2)
[2017-09-25] MEDS ORDERED: OMEP-110 PO (07:00)
[2017-09-25] MEDS ORDERED: LISI5TAB7 PO (07:00)
[2017-09-25] MEDS ORDERED: THIA100T10 PO (07:00)
[2017-09-25 07:43] VITALS: BP 129/67
[2017-09-25] MEDS: ENOXAPARIN 40 MG/0.4 ML SQ SCH (08:36)
[2017-09-25] MEDS: MULTIVITAMINS/MINERALS TABLET PO SCH (08:46)
[2017-09-25] MEDS: LISINOPRIL 5 MG TABLET PO SCH (08:46)
[2017-09-25] MEDS: OMEPRAZOLE 20 MG CAPSULE.DR PO SCH (08:46)
[2017-09-25] MEDS: THIAMINE 100MG TABLET PO SCH (08:46)
[2017-09-25 12:10] VITALS: BP 142/83
== END 2017-09-25 12:31 | disposition home or self-care (01) | DRG 641 ==
LOC: ED 06:42 → EDIP 06:43 → ED 06:53 → 3NE 07:49
PROVIDERS: ADMIT Hospitalist; ATTEND Hospitalist
DX: E87.1 Hypo-osmolality and hyponatremia (principal); E87.6 Hypokalemia; F17.210 Nicotine dependence, cigarettes, uncomplicated; F41.9 Anxiety disorder, unspecified; I10 Essential (primary) hypertension; J44.9 Chronic obstructive pulmonary disease, unspecified; E83.39 Other disorders of phosphorus metabolism; E86.0 Dehydration; F10.229 Alcohol dependence with intoxication, unspecified; F32.9 Major depressive disorder, single episode, unspecified; Z79.899 Other long term (current) drug therapy; Z91.5 Personal history of self-harm
CPT/HCPCS: 36415; 80048; 80053; 80307; 82010; 82040; 83690; 83735; 84100; 85025; 96365; 96372; 96375; J1650; J2405; J2550; J3411; J3475; J3480; J7042; J2060; J7030

== ENCOUNTER 2018-04-01 23:31 | Inpatient (IN) | payer MEDICAID ==
[~2018-04-01] VITALS: Ht 160 cm; Wt 65.8 kg
[~2018-04-01 23:31] MED LIST changes: +THIA100T10 PO; +TRAZ-137 PO; -TRAZ100T15 PO
[2018-04-02] MEDS ORDERED: ZIPRASIDONE 20 MG INJ IM ONE ×2 (00:30→00:57)
[2018-04-02 01:07] LABS: MICROSCOPIC NOT IND
[2018-04-02 01:15] LABS: CULTURE INDICATED? NO
[2018-04-02 01:16] LABS: AMPHETAMINE SCREEN, URINE Negative (Negative); BARBITURATE SCREEN, URINE Negative (Negative); BENZODIAZEPINE SCREEN, URINE Negative (Negative); CANNABINOID SCREEN, URINE Positive (Negative); COCAINE SCREEN, URINE Negative (Negative); METHADONE SCREEN, URINE Negative (Negative); OPIATE SCREEN, URINE Negative (Negative)
[2018-04-02 01:40] LABS: BASOPHILS # (AUTO) 0.05 x10^3/uL (0-0.1); BASOPHILS % (AUTO) 1 % (0-1); EOSINOPHILS # (AUTO) 0.19 x10^3/uL (0-0.4); EOSINOPHILS % (AUTO) 2 % (1-7); LYMPHOCYTES # (AUTO) 2.98 x10^3/uL (1-3.4); LYMPHOCYTES % (AUTO) 36 % (22-44); MD NO; MEAN CORPUSCULAR HEMOGLOBIN 32.6 pg (27.0-34.8); MEAN CORPUSCULAR HGB CONC 34.1 g/dL (32.4-35.8); MEAN CORPUSCULAR VOLUME 95.4 fL (80-100); MEAN PLATELET VOLUME 7.6 fL (7.4-10.4); MONOCYTES # (AUTO) 0.63 x10^3/uL (0.2-0.8); MONOCYTES % (AUTO) 8 % (2-9); NEUTROPHILS # (AUTO) 4.36 x10^3/uL (1.8-6.8); NEUTROPHILS % (AUTO) 53 % (42-75); PLATELET COUNT 266 x10^3/uL (130-400); RED BLOOD COUNT 4.87 x10^6/uL (3.82-5.3); RED CELL DISTRIBUTION WIDTH 14.2 % (9.6-15.2)
[2018-04-02 01:51] LABS: ALANINE AMINOTRANSFERASE 26 U/L (12-78); ALBUMIN 4.1 g/dL (3.4-5.0); ANION GAP 8 mmol/L (5-15); CALCIUM 8.9 mg/dL (8.5-10.1); CHLORIDE 109 mmol/L (98-107); CREATININE 0.72 mg/dL (0.55-1.02); SALICYLATE LEVEL 3.2 mg/dL (2.8-20.0)
[2018-04-02 01:54] LABS: ALKALINE PHOSPHATASE 90 U/L (45-117); BILIRUBIN,TOTAL 0.5 mg/dL (0.2-1.0); TOTAL PROTEIN 7.9 g/dL (6.4-8.2)
[2018-04-02 02:12] LABS: ACETAMINOPHEN < 2 mcg/mL (10-30)
[2018-04-02] MEDS ORDERED: PROMETHAZINE 25 MG/ML, 1ML IM ONE (11:30)
[2018-04-02] MEDS ORDERED: PROMETHAZINE 25 MG/ML, 1ML ONE (11:37)
[2018-04-02] MEDS ORDERED: SODIUM CHLORIDE FLUSH 10ML SYR IVF ONE (12:30)
[2018-04-02] MEDS ORDERED: LORazepam 2 MG/ML, 1ML ONE ×2 (12:30→13:07)
[2018-04-02] MEDS ORDERED: MAGNESIUM SULFATE 1 GM, THIAMINE 100 MG, FOLIC ACID 1 MG, MVI ADULT 10 ML in SODIUM CHL... IV ONE (12:30)
[2018-04-02] MEDS: LORazepam 2 MG/ML, 1ML IVPush PRN ×4 (12:35→15:24)
[2018-04-02] MEDS ORDERED: LABETALOL 5MG/ML, 20ML IVPush PRN (13:00)
[2018-04-02] MEDS ORDERED: ONDANSETRON ODT 4 MG PO PRN (13:00)
[2018-04-02] MEDS ORDERED: ONDANSETRON 2MG/ML, 2ML IVPush PRN (13:00)
[2018-04-02] MEDS ORDERED: POLYETHYLENE GLYCOL 17 GM PACKET PO PRN (13:00)
[2018-04-02] MEDS ORDERED: LIDODERM 5% PATCH TD PRN (13:00)
[2018-04-02] MEDS ORDERED: LORazepam 2 MG/ML, 1ML IV PRN ×4 (13:00)
[2018-04-02] MEDS ORDERED: ACETAMINOPHEN 325 MG TABLET PO PRN (13:00)
[2018-04-02] MEDS ORDERED: DOCUSATE 100 MG CAPSULE PO PRN (13:00)
[2018-04-02] MEDS ORDERED: ENALAPRILAT 1.25 MG/ML, 2ML IVPush PRN (13:00)
[2018-04-02] MEDS ORDERED: BISACODYL 10 MG SUPP PR PRN (13:00)
[2018-04-02] MEDS ORDERED: LORazepam 1MG TABLET PO PRN ×3 (13:00)
[2018-04-02 14:02] VITALS: BP 132/76
[2018-04-02] MEDS: ENOXAPARIN 40 MG/0.4 ML SQ SCH (14:17)
[2018-04-02] MEDS: AMLODIPINE 5 MG TABLET PO SCH (14:17)
[2018-04-02] MEDS: NICOTINE 7 MG/24 HR PATCH.TD24 TD SCH (14:17)
[2018-04-02] MEDS: MVI ADULT 10 ML, THIAMINE 200 MG, FOLIC ACID 1 MG in SODIUM CHLORIDE 0.45% 1,000 ML IV SCH (15:09)
[2018-04-02 19:28] VITALS: BP 124/70
[2018-04-02] MEDS: FAMOTIDINE 20 MG TABLET PO SCH (20:30)
[2018-04-03 01:23] VITALS: BP 143/79
[2018-04-03] MEDS: LORazepam 0.5MG TABLET PO PRN ×3 (04:20→20:42)
[2018-04-03 06:07] LABS: BASOPHILS # (AUTO) 0.06 x10^3/uL (0-0.1); BASOPHILS % (AUTO) 1 % (0-1); EOSINOPHILS # (AUTO) 0.21 x10^3/uL (0-0.4); EOSINOPHILS % (AUTO) 3 % (1-7); LYMPHOCYTES # (AUTO) 2.96 x10^3/uL (1-3.4); LYMPHOCYTES % (AUTO) 40 % (22-44); MD NO; MEAN CORPUSCULAR HEMOGLOBIN 32.4 pg (27.0-34.8); MEAN CORPUSCULAR HGB CONC 34.2 g/dL (32.4-35.8); MEAN CORPUSCULAR VOLUME 94.6 fL (80-100); MEAN PLATELET VOLUME 7.7 fL (7.4-10.4); MONOCYTES # (AUTO) 0.55 x10^3/uL (0.2-0.8); MONOCYTES % (AUTO) 7 % (2-9); NEUTROPHILS # (AUTO) 3.58 x10^3/uL (1.8-6.8); NEUTROPHILS % (AUTO) 49 % (42-75); PLATELET COUNT 241 x10^3/uL (130-400); RED BLOOD COUNT 4.21 x10^6/uL (3.82-5.3); RED CELL DISTRIBUTION WIDTH 14.4 % (9.6-15.2)
[2018-04-03 06:12] LABS: ANION GAP 8 mmol/L (5-15); CALCIUM 7.7 mg/dL (8.5-10.1); CHLORIDE 106 mmol/L (98-107); CREATININE 0.67 mg/dL (0.55-1.02)
[2018-04-03 07:27] VITALS: BP 135/71
[2018-04-03] MEDS: AMLODIPINE 5 MG TABLET PO SCH (07:47)
[2018-04-03] MEDS: FAMOTIDINE 20 MG TABLET PO SCH ×2 (07:47→20:42)
[2018-04-03] MEDS: POTASSIUM CHLORIDE 20 MEQ TAB.ER.PRT PO SCH ×2 (07:51→17:09)
[2018-04-03 12:51] VITALS: BP 109/67
[2018-04-03] MEDS: NICOTINE 7 MG/24 HR PATCH.TD24 TD SCH (13:00)
[2018-04-03] MEDS: ENOXAPARIN 40 MG/0.4 ML SQ SCH (13:27)
[2018-04-03] MEDS: MVI ADULT 10 ML, THIAMINE 200 MG, FOLIC ACID 1 MG in SODIUM CHLORIDE 0.45% 1,000 ML IV SCH (13:40)
[2018-04-03 19:10] VITALS: BP 124/74
[2018-04-04] MEDS: LORazepam 0.5MG TABLET PO PRN ×5 (00:23→17:13)
[2018-04-04 01:48] VITALS: BP 123/74
[2018-04-04 06:35] LABS: BASOPHILS # (AUTO) 0.04 x10^3/uL (0-0.1); BASOPHILS % (AUTO) 1 % (0-1); EOSINOPHILS # (AUTO) 0.17 x10^3/uL (0-0.4); EOSINOPHILS % (AUTO) 2 % (1-7); LYMPHOCYTES % (AUTO) 36 % (22-44); MD NO; MEAN CORPUSCULAR HEMOGLOBIN 32.7 pg (27.0-34.8); MEAN CORPUSCULAR HGB CONC 34.2 g/dL (32.4-35.8); MEAN CORPUSCULAR VOLUME 95.6 fL (80-100); MEAN PLATELET VOLUME 8.3 fL (7.4-10.4); MONOCYTES # (AUTO) 0.57 x10^3/uL (0.2-0.8); MONOCYTES % (AUTO) 8 % (2-9); NEUTROPHILS % (AUTO) 54 % (42-75); PLATELET COUNT 229 x10^3/uL (130-400); RED CELL DISTRIBUTION WIDTH 14.9 % (9.6-15.2)
[2018-04-04 06:43] LABS: ANION GAP 7 mmol/L (5-15); CALCIUM 8.7 mg/dL (8.5-10.1); CHLORIDE 107 mmol/L (98-107); CREATININE 0.72 mg/dL (0.55-1.02)
[2018-04-04 07:17] VITALS: BP 118/74
[2018-04-04] MEDS: AMLODIPINE 5 MG TABLET PO SCH (08:17)
[2018-04-04] MEDS: POTASSIUM CHLORIDE 20 MEQ TAB.ER.PRT PO SCH ×2 (08:17→17:10)
[2018-04-04] MEDS: FAMOTIDINE 20 MG TABLET PO SCH (08:17)
[2018-04-04] MEDS: NICOTINE 7 MG/24 HR PATCH.TD24 TD SCH (12:18)
[2018-04-04] MEDS: ENOXAPARIN 40 MG/0.4 ML SQ SCH (12:18)
[2018-04-04 12:59] VITALS: BP 109/67
[2018-04-04] MEDS: MVI ADULT 10 ML, THIAMINE 200 MG, FOLIC ACID 1 MG in SODIUM CHLORIDE 0.45% 1,000 ML IV SCH (13:09)
[2018-04-04] MEDS ORDERED: FOLI-17 PO (15:23)
[2018-04-04] MEDS ORDERED: THIA100T10 PO (15:23)
[2018-04-04] MEDS ORDERED: OMEP-110 PO (15:23)
[2018-04-04] MEDS ORDERED: AMLO-150 PO (15:23)
[2018-04-04] MEDS ORDERED: LISI5TAB7 PO (15:23)
== END 2018-04-04 18:12 | disposition home or self-care (01) | DRG 641 ==
LOC: ED 04-02 01:33 → EDIP 04-02 12:33 → 4WST 04-02 13:28
PROVIDERS: ADMIT Hospitalist; ATTEND Hospitalist
DX: E87.6 Hypokalemia (principal); F10.239 Alcohol dependence with withdrawal, unspecified; F33.1 Major depressive disorder, recurrent, moderate; R45.851 Suicidal ideations; F10.229 Alcohol dependence with intoxication, unspecified; I10 Essential (primary) hypertension; E83.42 Hypomagnesemia; F12.90 Cannabis use, unspecified, uncomplicated; F17.210 Nicotine dependence, cigarettes, uncomplicated; F19.94 Other psychoactive substance use, unspecified with psychoactive substance-induced mood disorder; F41.1 Generalized anxiety disorder; J43.9 Emphysema, unspecified; Y90.8 Blood alcohol level of 240 mg/100 ml or more; Z66 Do not resuscitate; Z91.14 Patient's other noncompliance with medication regimen; Z86.718 Personal history of other venous thrombosis and embolism; Z91.5 Personal history of self-harm
CPT/HCPCS: 36415; 71045; 80048; 80053; 80307; 80329; 81003; 83735; 84100; 85025; 93005; 96372; 99285; G0378; J1650; J2550; J3411; J3486; Q0162; G0480; J2060

== ENCOUNTER 2018-06-15 19:00 | Emergency (ER) | payer MEDICAID ==
[~2018-06-15] VITALS: Ht 152.4 cm; Wt 59.0 kg
[~2018-06-15 19:00] MED LIST changes: +AMLO-150 PO; +FOLI-17 PO
--- NOTE | 2018-06-15 19:15 | NUR ---
Lab at bedside.
[2018-06-15 19:17] VITALS: BP 144/76
[2018-06-15] MEDS ORDERED: LORazepam 1MG TABLET PO ONE (19:30)
[2018-06-15] MEDS ORDERED: MAALOX/HYOSCYAMINE/LIDOCAINE 45 ML BTL PO ONE (19:30)
[2018-06-15] MEDS ORDERED: ONDANSETRON ODT 4 MG PO ONE (19:30)
[2018-06-15 19:35] LABS: MEAN CORPUSCULAR HEMOGLOBIN 32.2 pg (27.0-34.8); MEAN CORPUSCULAR HGB CONC 34.1 g/dL (32.4-35.8); MEAN CORPUSCULAR VOLUME 94.6 fL (80-100); MEAN PLATELET VOLUME 7.7 fL (7.4-10.4); PLATELET COUNT 282 x10^3/uL (130-400); RED BLOOD COUNT 4.84 x10^6/uL (3.82-5.3)
[2018-06-15 19:36] LABS: ALBUMIN 4.1 g/dL (3.4-5.0); ANION GAP 7 mmol/L (5-15); CALCIUM 8.8 mg/dL (8.5-10.1); CHLORIDE 110 mmol/L (98-107)
[2018-06-15 19:40] LABS: ALANINE AMINOTRANSFERASE 28 U/L (12-78); ALKALINE PHOSPHATASE 95 U/L (45-117); BILIRUBIN,TOTAL 0.6 mg/dL (0.2-1.0); TOTAL PROTEIN 8.2 g/dL (6.4-8.2)
--- NOTE | 2018-06-15 19:40 | NUR ---
late entry: this RN to room to assess patient, patient not in room, not found in department. Patient eloped.
[2018-06-15 19:52] LABS: BASOPHILS # (AUTO) 0.03 x10^3/uL (0-0.1); BASOPHILS % (AUTO) 0 % (0-1); EOSINOPHILS # (AUTO) 0.17 x10^3/uL (0-0.4); EOSINOPHILS % (AUTO) 2 % (1-7); LYMPHOCYTES % (AUTO) 41 % (22-44); MD SCAN; MONOCYTES # (AUTO) 0.56 x10^3/uL (0.2-0.8); MONOCYTES % (AUTO) 7 % (2-9); NEUTROPHILS # (AUTO) 3.78 x10^3/uL (1.8-6.8); NEUTROPHILS % (AUTO) 50 % (42-75)
== END 2018-06-15 19:57 | disposition left against medical advice (07) ==
LOC: ED 19:51
DX: K29.20 Alcoholic gastritis without bleeding (principal); F10.20 Alcohol dependence, uncomplicated; I10 Essential (primary) hypertension; E11.9 Type 2 diabetes mellitus without complications; J44.9 Chronic obstructive pulmonary disease, unspecified; Z72.9 Problem related to lifestyle, unspecified; Z63.8 Other specified problems related to primary support group; Z75.9 Unspecified problem related to medical facilities and other health care; Z91.14 Patient's other noncompliance with medication regimen; Y90.9 Presence of alcohol in blood, level not specified
CPT/HCPCS: 36415; 80053; 80307; 83690; 85025; 99283

== ENCOUNTER 2019-07-22 01:46 | Emergency (ER) | payer MEDICARE, MEDICAID ==
[~2019-07-22] VITALS: Ht 157.5 cm; Wt 60.6 kg
[~2019-07-22 01:46] MED LIST changes: -TRAZ-137 PO; +TRAZ-175 PO
--- NOTE | 2019-07-22 02:01 | NUR ---
Pt also reports having 3 beers today and taking Asa at home.
--- NOTE | 2019-07-22 02:21 | NUR ---
pt up to rr with steady gait
[2019-07-22] MEDS ORDERED: LORazepam 2 MG/ML, 1ML IVPush ONE (02:30)
[2019-07-22] MEDS ORDERED: SODIUM CHLORIDE FLUSH 10ML SYR IVF ONE (02:30)
[2019-07-22] MEDS ORDERED: LORazepam 2 MG/ML, 1ML ONE (02:47)
--- NOTE | 2019-07-22 02:50 | NUR ---
pt medicated per jun. monitors in place, iv site started. call light within reach
[2019-07-22 03:00] LABS: BASOPHILS # (AUTO) 0.04 x10^3/uL (0-0.1); BASOPHILS % (AUTO) 0 % (0-1); EOSINOPHILS # (AUTO) 0.47 x10^3/uL (0-0.4); EOSINOPHILS % (AUTO) 5 % (1-7); LYMPHOCYTES # (AUTO) 3.33 x10^3/uL (1-3.4); LYMPHOCYTES % (AUTO) 34 % (22-44); MD NO; MEAN CORPUSCULAR HEMOGLOBIN 32.2 pg (27.0-34.8); MEAN CORPUSCULAR HGB CONC 33.6 g/dL (32.4-35.8); MEAN CORPUSCULAR VOLUME 95.7 fL (80-100); MONOCYTES # (AUTO) 0.51 x10^3/uL (0.2-0.8); MONOCYTES % (AUTO) 5 % (2-9); NEUTROPHILS # (AUTO) 5.53 x10^3/uL (1.8-6.8); NEUTROPHILS % (AUTO) 56 % (42-75); PLATELET COUNT 250 x10^3/uL (130-400); RED BLOOD COUNT 4.89 x10^6/uL (3.82-5.3); RED CELL DISTRIBUTION WIDTH 12.8 % (9.6-15.2)
[2019-07-22] MEDS ORDERED: AMLODIPINE 5 MG TABLET PO ONE (03:00)
[2019-07-22] MEDS ORDERED: LORazepam 1MG TABLET PO ONE (03:00)
[2019-07-22 03:08] LABS: ALANINE AMINOTRANSFERASE 22 U/L (12-78); ALBUMIN 4.2 g/dL (3.4-5.0); ANION GAP 7 mmol/L (5-15); CALCIUM 9.5 mg/dL (8.5-10.1); CHLORIDE 109 mmol/L (98-107); CREATININE 0.77 mg/dL (0.55-1.02)
[2019-07-22 03:12] LABS: ALKALINE PHOSPHATASE 76 U/L (45-117); BILIRUBIN,TOTAL 0.3 mg/dL (0.2-1.0); TOTAL PROTEIN 8.1 g/dL (6.4-8.2); TROPONIN I < 0.015 ng/mL (0.000-0.045)
[2019-07-22] MEDS ORDERED: AMLODIPINE 5 MG TABLET ONE (03:13)
[2019-07-22 03:17] VITALS: BP 134/76
--- NOTE | 2019-07-22 03:23 | NUR ---
pt's b/p recheck 134/76, pa updated, order received to hold b/p medication.
== END 2019-07-22 04:18 | disposition home or self-care (01) ==
LOC: ED 02:00
DX: R07.89 Other chest pain (principal); F41.1 Generalized anxiety disorder; R00.0 Tachycardia, unspecified; I10 Essential (primary) hypertension; R06.02 Shortness of breath; J43.9 Emphysema, unspecified; E11.9 Type 2 diabetes mellitus without complications
CPT/HCPCS: 36415; 71045; 80053; 84484; 85025; 93005; 96374; 99285; J2060

== ENCOUNTER 2019-08-01 19:12 | Emergency (ER) | payer MEDICARE, MEDICAID ==
[~2019-08-01] VITALS: Ht 157.5 cm; Wt 59.8 kg
[2019-08-01] MEDS ORDERED: LORazepam 0.5MG TABLET PO ONE (19:30)
[2019-08-01] MEDS ORDERED: LORazepam 0.5MG TABLET ONE (19:37)
--- NOTE | 2019-08-01 20:06 | NUR ---
THIS IS A 64 YO FEMALE WHO REPORTS "I FEEL HEADACHES AND PRESSURE IN MY HEAD" INTERMITTENTLY X 1.5 YEARS "AFTER QUITING MY BLOOD PRESSURE MEDICATION. I NEVER SHOULD HAVE STOPPED IT. I HAVE AN APPOINTMENT TUESDAY. I JUST NEED TO HAVE ENOUGH TIL THEN." PT CURRENTLY DENIES WALDRON, VISION CHANGES OR N/V. PT AO X4. SKIN PWD. RESP EVEN AND UNLABORED. NO ACUTE DISTRESS NOTED. PT MEDICATED ORDERED BY ERMD AND REQUESTED BY PT FOR ANXIETY. CALL LIGHT WITHIN REACH.
[2019-08-01 20:13] VITALS: BP 159/78
== END 2019-08-01 20:15 | disposition home or self-care (01) ==
LOC: ED 19:51
DX: F41.1 Generalized anxiety disorder (principal); I10 Essential (primary) hypertension; F17.210 Nicotine dependence, cigarettes, uncomplicated; R00.0 Tachycardia, unspecified; R06.02 Shortness of breath; R50.9 Fever, unspecified; R19.7 Diarrhea, unspecified; R11.2 Nausea with vomiting, unspecified; R05 Cough; R07.89 Other chest pain; Z76.0 Encounter for issue of repeat prescription
CPT/HCPCS: 93005; 99283; 99406

== ENCOUNTER 2019-08-13 13:17 | Outpatient (CLI) | payer MEDICARE, MEDICAID ==
[2019-08-13] MEDS ORDERED: OMNIPAQUE 350 MG/ML, 75ML BOTTLE ONE (14:24)
== END 2019-08-13 23:59 | disposition home or self-care (01) ==
LOC: CFH 13:17
PROVIDERS: ATTEND Internal Medicine
DX: R91.1 Solitary pulmonary nodule (principal)
CPT/HCPCS: 71260; Q9967

== ENCOUNTER 2020-08-01 07:01 | Outpatient (CLI) | payer MEDICARE ==
[~2020-08-01 07:01] MED LIST changes: -FOLI-17 PO; +FOLI1TAB32 PO
[2020-08-01] MEDS ORDERED: OMNIPAQUE 350 MG/ML, 100ML BOTTLE ONE (08:14)
== END 2020-08-01 23:59 | disposition home or self-care (01) ==
LOC: CFH 07:01
PROVIDERS: ATTEND Internal Medicine
DX: K76.0 Fatty (change of) liver, not elsewhere classified (principal); I70.0 Atherosclerosis of aorta; M85.88 Other specified disorders of bone density and structure, other site
CPT/HCPCS: 74177; 82565; Q9967

== ENCOUNTER → 2020-09-12 | Outpatient (CLI) | payer MEDICARE, MEDICAID ==
[~2020-09-12] MED LIST changes: +ALBU6.7H8 INH; +AMLO-211 PO; +BIOT1TAB2 PO; +BISO10TA PO; +BUDE10.2 INH; +CYCL10TA2 PO; +LORA-446 PO; +MULT-717 PO; +OMEP40CA42 PO; +TRAZ300T2 PO
[2020-09-12 10:16] LABS: ALANINE AMINOTRANSFERASE 24 U/L (12-78); ALBUMIN 4.2 g/dL (3.4-5.0); ANION GAP 4 mmol/L (5-15); CALCIUM 9.1 mg/dL (8.5-10.1); CHLORIDE 106 mmol/L (98-107); CREATININE 0.83 mg/dL (0.55-1.02)
[2020-09-12 10:19] LABS: ALKALINE PHOSPHATASE 80 U/L (45-117); BILIRUBIN,TOTAL 0.3 mg/dL (0.2-1.0); TOTAL PROTEIN 7.9 g/dL (6.4-8.2)
== END | disposition home or self-care (01) ==
LOC: STAR 08:52
PROVIDERS: ATTEND Surgery
DX: Z01.818 Encounter for other preprocedural examination (principal); I21.9 Acute myocardial infarction, unspecified; Z20.822 Contact with and (suspected) exposure to COVID-19
CPT/HCPCS: 36415; 80053; 93005; U0003; U0005

== ENCOUNTER 2020-09-17 08:50 | Observation (INO) | payer MEDICARE, MEDICAID ==
[~2020-09-17] VITALS: Ht 157.5 cm; Wt 63.5 kg
[~2020-09-17 08:50] MED LIST changes: +BUPIVACAINE/PF 0.25% ONE; +EPINEPHRINE 1 MG/ML, 1ML ONE; -OMEP40CA42 PO; +OMEP40CA8 PO
[2020-09-17] MEDS ORDERED: CHLORHEXIDINE 15 ML UDC PO ONE (09:30)
[2020-09-17] MEDS ORDERED: LACTATED RINGERS 1,000 ML IV SCH ×2 (09:30→15:30)
[2020-09-17] MEDS ORDERED: MIDAZOLAM 1 MG/ML, 2ML ONE ×2 (10:17→14:19)
[2020-09-17] MEDS ORDERED: FENTANYL PF 250 MCG/5ML ONE (10:50)
[2020-09-17] MEDS: FENTANYL PF 100 MCG/2ML IV PRN ×3 (11:39→13:45)
[2020-09-17] MEDS ORDERED: SUCCINYLCHOLINE 20 MG/ML, 10ML ONE (12:06)
[2020-09-17] MEDS ORDERED: DEXAMETHASONE 4 MG/ML, 1ML ONE (12:06)
[2020-09-17] MEDS ORDERED: PROPOFOL 10 MG/ML, 20ML ONE (12:06)
[2020-09-17] MEDS ORDERED: SUGAMMADEX 200 MG/2 ML IVPush ONE (12:06)
[2020-09-17] MEDS ORDERED: CEFAZOLIN 1,000 MG ONE (12:06)
[2020-09-17] MEDS ORDERED: ROCURONIUM 10 MG/ML,10ML ONE (12:06)
[2020-09-17] MEDS ORDERED: ONDANSETRON 2MG/ML, 2ML ONE (12:06)
[2020-09-17] MEDS ORDERED: BUPIVACAINE/PF-EPI 0.25% 1:200K INFIL ONE (12:30)
[2020-09-17] MEDS ORDERED: FENTANYL PF 100 MCG/2ML ONE (13:28)
[2020-09-17] MEDS ORDERED: OXYcodone 5 MG/5 ML ORAL.SOL UDC ONE (13:29)
[2020-09-17] MEDS ORDERED: HYDROmorphone 1 MG/ML, 1ML INJ ONE (13:29)
[2020-09-17] MEDS ORDERED: DIAZEPAM 5 MG/ML, 2ML ONE (13:29)
[2020-09-17] MEDS ORDERED: LABETALOL 5MG/ML, 20ML IV PRN (13:30)
[2020-09-17] MEDS ORDERED: ONDANSETRON 2MG/ML, 2ML IVPush PRN ×2 (13:30→15:30)
[2020-09-17] MEDS ORDERED: KETOROLAC 30 MG/1 ML IV PRN (13:30)
[2020-09-17] MEDS ORDERED: hydrALAzine 20 MG/ML, 1ML IV PRN (13:30)
[2020-09-17] MEDS ORDERED: DIAZEPAM 5 MG/ML, 2ML IV PRN (13:30)
[2020-09-17] MEDS ORDERED: PROMETHAZINE 25 MG/ML, 1ML IV PRN (13:30)
[2020-09-17] MEDS ORDERED: ALBUTEROL SULFATE 2.5 MG/3 ML NPPB PRN (13:30)
[2020-09-17] MEDS ORDERED: OXYcodone 5 MG/5 ML ORAL.SOL UDC PO PRN (13:30)
[2020-09-17] MEDS ORDERED: HYDROmorphone 1 MG/ML, 1ML INJ IV PRN (13:30)
[2020-09-17] MEDS ORDERED: METOCLOPRAMIDE 5 MG/ML, 2ML IV PRN (13:30)
[2020-09-17] MEDS ORDERED: MEPERIDINE/PF 25MG/0.5ML IVPush PRN (13:30)
[2020-09-17] MEDS: DIAZEPAM 5 MG/ML, 2ML IV PRN (13:44)
[2020-09-17] MEDS ORDERED: DIPHENHYDRAMINE 50 MG/ML, 1ML IVPush PRN (15:30)
[2020-09-17] MEDS ORDERED: LORazepam 1MG TABLET PO PRN (15:30)
[2020-09-17] MEDS ORDERED: ALBUTEROL SULFATE 200 PUFFS/8.5 GR INH INH PRN (15:30)
[2020-09-17] MEDS: CYCLOBENZAPRINE 10 MG TABLET PO SCH ×2 (16:00→21:01)
[2020-09-17] MEDS: OXYcodone/APAP 5/325MG TABLET PO PRN (17:44)
[2020-09-17 19:23] VITALS: BP 135/67
[2020-09-17] MEDS ORDERED: TRAZODONE 150MG TABLET PO SCH (21:00)
[2020-09-18 00:17] VITALS: BP 138/73
[2020-09-18] MEDS ORDERED: OMEPRAZOLE 20 MG CAPSULE.DR PO SCH (06:00)
[2020-09-18 07:03] VITALS: BP 132/86
[2020-09-18] MEDS: OXYcodone/APAP 5/325MG TABLET PO PRN (07:54)
[2020-09-18] MEDS: CYCLOBENZAPRINE 10 MG TABLET PO SCH (07:55)
[2020-09-18] MEDS ORDERED: MULTIVITAMIN 1 TABLET PO SCH (09:00)
[2020-09-18] MEDS ORDERED: AMLODIPINE 10 MG TAB PO SCH (09:00)
[2020-09-18 09:22] VITALS: BP 146/86
== END 2020-09-18 11:00 | disposition home or self-care (01) ==
LOC: OUT 08:50 → 4NE 14:42 → OUT 14:44 → 4NE 14:44 → DCLOUNGE 09-18 10:50
PROVIDERS: ADMIT Surgery; ATTEND Surgery
DX: K81.1 Chronic cholecystitis (principal); I10 Essential (primary) hypertension; E78.5 Hyperlipidemia, unspecified; J44.9 Chronic obstructive pulmonary disease, unspecified; F17.200 Nicotine dependence, unspecified, uncomplicated; Z79.82 Long term (current) use of aspirin; Z79.899 Other long term (current) drug therapy
CPT/HCPCS: 47562; 88304; C1760; G0378; J0171; J0330; J0690; J1100; J2250; J2405; J2704; J3010; J3360; J7120